=== PATIENT | male | born 1935 | race Caucasian/White ===

== ENCOUNTER 2016-12-08 13:20 | Day surgery (SDC) | payer MEDICARE, OTHER ==
[~2016-12-08] VITALS: Ht 172.7 cm; Wt 85.4 kg
--- NOTE | ~2016-12-08 | OR ---
PATIENT'S NAME: ABIODUN TINAJERO [facility] AGE: 81 Y [address] ROOM: [place] [address] [place] [facility] [place]: 12/08/2016 OR/Procedure Report DISCHARGE DATE: 12/08/2016 FAMILY PHYSICIAN: Shlomo Jose MD ATTENDING PHYSICIAN: Jose Carter SURGEON: Jose Carter MD HOME HEALTH LVN: DATE OF PROCEDURE: 12/08/2016 PREOPERATIVE DIAGNOSIS: An 8 mm right proximal ureteral calculus. POSTOPERATIVE DIAGNOSIS: An 8 mm right proximal ureteral calculus. PROCEDURES PERFORMED: 1. Cystoscopy with stone manipulation. 2. Right ureteral stent placement. 3. Right extracorporeal shock wave lithotripsy. ANESTHESIA: Sedation. INDICATION: This is an 81-year-old gentleman with a past history of stone disease. We have not done an intervention for approximately 10 years. On 12/04/2016, he had the onset of severe right flank pain. He was seen in [place]. He had a CT scan that demonstrated an 8 mm right proximal calculus with obstruction. Dr. Calvillo admitted him for symptomatic management. His symptoms improved. He was dismissed with instructions to follow up with us. He has had occasional twinges over the weekend with the symptoms generally controlled with tramadol. I had reviewed his CT scan. Based on the size and location of the stone, it is not likely to pass spontaneously. It is in the proximal ureter. I recommended cystoscopy with stone manipulation, stent placement, and lithotripsy. He has been through lithotripsy in the past. He understood the indications, risks, and benefits, and he wanted to proceed. We added him onto the schedule today. DESCRIPTION OF PROCEDURE: Having obtained his informed consent, the patient was taken first to the cystoscopy suite. He was prepped and draped sterilely and in lithotomy position. IV sedation is administered. The 21-Romansh cystoscope was assembled and guided into the urethra. The course of the urethra was unremarkable. He is on a combination therapy for his underlying BPH. His prostatic urethra is open. Moving onto the bladder, there were no tumors, stones, or foreign bodies. Bladder examination was confirmed with a 70-degree lens. PATIENT'S NAME: ABIODUN TINAJERO [facility] AGE: 81 Y [address] ROOM: [place] [address] [place] [facility] [place]: 12/08/2016 OR/Procedure Report DISCHARGE DATE: 12/08/2016 FAMILY PHYSICIAN: Shlomo Jose MD ATTENDING PHYSICIAN: Jose Carter Under fluoroscopy, I can see the density in the area of the proximal third on the right side consistent with a CT scan. It does not appear to have moved. I placed the patient in a steep Trendelenburg position. I passed an open- ended catheter to the level of the stone. Using saline irrigation, I washed the stone back into the renal pelvis. With the stone dislodged, I passed a guidewire through that open-ended catheter. Over that, I passed a 4.8 multi-length stent. We have a nice level of placement cystoscopically and fluoroscopically. The patient was then transferred to the lithotripsy suite. The stone was brought in the second focal point of the ellipsoid and fragmentation was begun. We started at 14 kV and worked up to a maximum of 24 kV. A total of 2800 impulses were administered until we can no longer appreciate any debris. The patient tolerated all this well. Blood loss was negligible. No specimens were sent. The patient returned to the outpatient recovery awake and in stable condition. JOSE CARTER MD [facility]/modl /[id number] CC: Shlomo Jose MD d: 12/09/16 0005 t: 12/22/16 0634, OPERATIVE SUMMARY
[~2016-12-08 13:20] MED LIST: ALFUZOSIN HCL E10 MG PO; ASPIRIN LO-DOSE81 MG PO; COLACE100 MG PO; DILAUDID 2MG(HYD2 MG PO; LIPITOR80 MG PO; MIRALAX17 GM PO; NEURONTIN300 MG PO; NORVASC5 MG PO; PRILOSEC20 MG PO; PROSCAR5 MG PO; TYLENOL EXTRA500 MG PO; ULTRAM50 MG PO; VITAMIN D1000 UNIT PO; XARELTO10 MG PO
[2016-12-08 14:49] LABS: BASOPHIL # 0.1 K/uL (0.0-0.2); BASOPHIL % 0.9 %; EOSINOPHIL # 0.2 K/uL (0.0-0.5); EOSINOPHIL % 3.6 %; HEMATOCRIT 43.7 % (33.0-50.0); HEMOGLOBIN 14.6 g/dL (11.0-16.0); IMMATURE GRANULOCYTE % 0.2 %; LYMPHOCYTE # 2.1 K/uL (0.8-4.0); LYMPHOCYTE % 36.4 %; MCH 31.5 pg (27.0-34.0); MCHC 33.4 gm/dL (32.0-36.5); MCV 94.4 fl (83.0-98.0); MONOCYTE # 0.7 K/uL (0.0-1.0); MPV 9.6 fl (9.4-12.4); NEUTROPHIL # (ANC) 2.7 K/uL (1.4-9.0); NEUTROPHIL % 46.9 %; NRBC % 0 /100WBC (0-0.00); PLATELET COUNT 167 K/uL (150-450); RBC 4.63 M/uL (3.50-5.50); RDW-CV 12.9 % (11.9-14.6); WBC 5.8 K/uL (4.0-11.0)
[2016-12-08] MEDS ORDERED: NORCO 5-325 TA1 EACH PO (19:07)
== END 2016-12-08 19:46 | disposition disaster alternative care site (69) ==
LOC: GSDC 13:20
PROVIDERS: Urology
PROC: 0T768DZ Dilation of Right Ureter with Intraluminal Device, Via Natural or Artificial Opening Endoscopic (ICD-10-PCS; principal; 2016-12-08)
PROC: 0TN68ZZ Release Right Ureter, Via Natural or Artificial Opening Endoscopic (ICD-10-PCS; 2016-12-08)
PROC: 0TF6XZZ Fragmentation in Right Ureter, External Approach (ICD-10-PCS; 2016-12-08)
DX: N13.2 Hydronephrosis with renal and ureteral calculous obstruction (principal); I25.10 Atherosclerotic heart disease of native coronary artery without angina pectoris; I73.9 Peripheral vascular disease, unspecified; I10 Essential (primary) hypertension; G47.30 Sleep apnea, unspecified; M19.90 Unspecified osteoarthritis, unspecified site; Z87.891 Personal history of nicotine dependence; Z95.0 Presence of cardiac pacemaker; Z88.8 Allergy status to other drugs, medicaments and biological substances
CPT/HCPCS: C1769; C2617; J1956; J2001; J7120